=== PATIENT | male | born 1995 | race Caucasian/White ===

== ENCOUNTER → 2018-01-09 | Outpatient (CLI) | payer OTHER ==
--- NOTE | 2018-01-09 09:17 | Diagnostic Imaging Report ---
TECHNIQUE: Magnetic resonance imaging of the right WRIST was performed WITHOUT injected contrast, on a 1.5 murali magnet. HISTORY: Pain COMPARISON: None available. FINDINGS: Bone and bone marrow: No focal or infiltrative bone marrow replacing abnormality. No acute fracture or osteonecrosis. The osseous alignment is within normal limits. Joints: Fluid within the joints is within physiologic limits. The joints spaces are well maintained. Ligaments: Scapholunate: Intact Lunotriquetral: Intact Triangular fibrocartilage complex: Intact Extrinsic ligaments: Intact Tendons: The flexor and extensor tendons are intact. Carpal tunnel: The median nerve is within normal limits. Other soft tissues: Area of volar subcutaneous soft tissue hyperintense signal superficial to the palmar aponeurosis measuring 1.8 cm axial image 20 and sagittal image 21. IMPRESSION: No acute osseous, ligamentous, or tendinous abnormality. Area volar subcutaneous soft tissue hyperintense signal superficial to the pulmonary aponeurosis may reflect ganglion or an adventitial bursitis. Signed by: Dr. Luis Hidalgo M.D. on 01/09/2018 9:13 AM
== END ==
LOC: MRI 07:43
PROVIDERS: ATTEND Specialist
DX: S63.8X1A Sprain of other part of right wrist and hand, initial encounter (principal)

== ENCOUNTER → 2018-01-31 | Day surgery (SDC) | payer OTHER ==
[~2018-01-31] MED LIST: BUPIVACAINE HCL 0.5% INJ 30 ML VIAL INJ ONE; CEFAZOLIN SOD 1 GM VIAL ONE; DEXAMETHASONE SOD PHOS INJ 4 MG/ML VIAL ONE; FENTANYL CITRATE/PF 100MCG/2 ML INJ ONE; KETOROLAC TROMETHAMINE 30 MG/ML VIAL ONE; LIDOCAINE HCL 2% LOCAL INJ 5 ML SDV VIAL INJ ONE; MIDAZOLAM HCL 2 MG/2 ML VIAL ONE; ONDANSETRON HCL INJ 2 MG/ML VIAL ONE; PROPOFOL IV EMULSION 10 MG/ML 20 ML VIAL ONE; SEVOFLURANE INHAL SOLN 250 ML PEN BTL ONE
--- OUTSIDE RECORDS SUMMARY | 2018-01-31 07:46 | XMS REPORT ---
Author Author [facility] Address Unknown Phone Unavailable Care Team Providers Care Passenger Service Supervisor Name Role Phone DRAGAN WELLINGTON Unavailable Unavailable Problems This patient has no known problems. Allergies, Adverse Reactions, Alerts This patient has no known allergies or adverse reactions. Medications This patient has no known medications. Results Test Description Test Time Test Comments Text Results Atomic Results Result Comments MRI WRIST RIGHT WO 2018-01-09 09:07:00 [place] [id number] Patient Name: ELIE MARVIN MR #: [id number] : 1995 Age/Sex: 23/M Req #: [id number] [facility] Physician: Ordered by: DRAGAN WELLINGTON MD Report #: [id number] Location: MRI Room/Bed: Procedure: [id number] MRI/MRI WRIST RIGHT WO Exam Date: Exam Time: REPORT STATUS: Signed TECHNIQUE: Magnetic resonance imaging of the right WRIST was performed WITHOUT injected contrast, on a 1.5 murali magnet. HISTORY: Pain COMPARISON: None available. FINDINGS: Bone and bone marrow: No focal or infiltrative bone marrow replacing abnormality. No acute fracture or osteonecrosis. The osseous alignment is within normal limits. Joints: Fluid within the joints is within physiologic limits. The joints spaces are well maintained. Ligaments: Scapholunate: Intact Lunotriquetral: Intact Triangular fibrocartilage complex: Intact Extrinsic ligaments: Intact Tendons: The flexor and extensor tendons are intact. Carpal tunnel: The median nerve is within normal limits. Other soft tissues: Area of volar subcutaneous soft tissue hyperintense signal superficial to the palmar aponeurosis measuring 1.8 cm axial image 20 and sagittal image 21. IMPRESSION: No acute osseous, ligamentous, or tendinous abnormality. Area volar subcutaneous soft tissue hyperintense signal superficial to the pulmonary aponeurosis may reflect ganglion or an adventitial bursitis. Signed by: Dr. Elizabeth Silveira M.D. on 01/09/2018 9:13 AM Dictated By: ELIZABETH SILVEIRA MD 2 Transcribed By: NO on 01/09/18912 COPY TO: DRAGAN WELLINGTON MD
[2018-01-31 11:45] VITALS: BP 126/68
--- NOTE | 2018-01-31 11:48 | Operative Report ---
DATE OF PROCEDURE: January 31, 2018 PREOPERATIVE DIAGNOSIS: Right wrist volar ganglion. POSTOPERATIVE DIAGNOSIS: Right wrist volar ganglion. PROCEDURE: Excision right wrist volar ganglion. INDICATIONS: The patient is a 23-year-old gentleman with an intractable right wrist volar ganglion. He would like to have this removed. The risks and benefits were explained. He states he understands and wishes to proceed. DESCRIPTION OF PROCEDURE: The patient was brought to the operating room and placed under general anesthetic. He received prophylactic antibiotics in the holding area. His right upper extremity was prepped and draped in a sterile manner. A preoperative time out was performed. A transverse incision was made over the distal radial aspect of the right wrist. The ganglion cyst was carefully excised. There was a stalk that traversed down to the palmaris longus tendon sheath. The cyst was excised and sent to pathology. The wound was irrigated. The stalk was oversewn with 3-0 Vicryl. The skin was closed with interrupted nylon stitches. A sterile bandage and a volar splint were applied. He was extubated and transported to the recovery room in stable condition. There was no blood loss, and all needle and sponge counts were correct. Job#: [id number]
--- NOTE | 2018-02-05 13:44 | Progress Note ---
DATE: ADDENDUM Due to the worsening of the BUN and creatinine and the sodium being higher, most likely the patient is volume depleted. We are going to discontinue the Lasix, give him some IV fluids, and monitor BUN and creatinine carefully. Job#: [id number] AYDEN
== END | disposition home or self-care (01) ==
LOC: OR 07:44
PROVIDERS: ATTEND Specialist
DX: M67.431 Ganglion, right wrist (principal); E87.0 Hyperosmolality and hypernatremia; F90.9 Attention-deficit hyperactivity disorder, unspecified type; F41.9 Anxiety disorder, unspecified; Z87.891 Personal history of nicotine dependence
CPT/HCPCS: 25111; 88304; J0690; J1100; J1885; J2001; J2250; J2405

== ENCOUNTER 2018-03-29 15:11 | Outpatient (RCR) | payer OTHER | END 2018-04-10 | LOC: OT 15:11 | PROVIDERS: ATTEND Specialist | DX: Z47.89 Encounter for other orthopedic aftercare (principal); S63.8X1A Sprain of other part of right wrist and hand, initial encounter | CPT/HCPCS: 97165; G8987; G8988 ==

== ENCOUNTER 2018-04-21 07:59 | Outpatient (RCR) | payer OTHER | END 2018-05-11 | LOC: OT 07:59 | PROVIDERS: ATTEND Specialist | DX: Z47.89 Encounter for other orthopedic aftercare (principal); S63.8X1A Sprain of other part of right wrist and hand, initial encounter | CPT/HCPCS: 97139 ==